=== PATIENT | male | born 1965 | race Caucasian/White ===

== ENCOUNTER 2016-09-14 20:38 | Emergency (ER) | payer OTHER ==
[~2016-09-14] VITALS: Ht 175.3 cm; Wt 74.8 kg
[~2016-09-14 20:38] MED LIST: CYMBALTA60 MG PO; QUINAPRIL HCL40 MG PO
--- NOTE | 2016-09-14 20:50 | ED GENERAL ADULT ---
History of Present Illness General Chief Complaint: Altered Mental Status Stated Complaint: BIBA AMS Source: patient Exam Limitations: unable to give history, confusion Allergies Coded Allergies: NO KNOWN ALLERGIES (10/17/15) Reconcile Medications DULOXETINE HCL (Cymbalta) 60 MG ECC 1 CAP PO DAILY DEPRESSION (Reported) QUINAPRIL HCL (Quinapril HCl) 40 MG TAB 1 TAB PO BID HTN Triage Note: PT BIBA FROM HOME S/P FAMILY CALLING EMS DUE TO AMS. PER FAMILY PT FELL 2 TIMES TODAY BACK ON TO HIS BED. PT ARRIVES ALERT, ORIENTED TO PERSON AND PLACE ONLY. PT DENIES ANY COMPLAINTS. Triage Nurses Notes Reviewed? yes HPI: Patient is a 51-year-old male who was BIBA after family EMS due to two episodes patient falling back on to his bed today. Patient is alert and awake, oriented to place, person but not time. When asked what happened he says 'I just don't know'. Patient answers questions with yes and know, speech is non-fluent and is only answering with 2-3 words. He does not appear in distress, denies headache, visual changes, chest pain, SOB. denies alcohol or substance use. Family members are not at bedside, home phone was called and nobody answered, mother's phone number was invalid. (DREAD LAWTON,[facility]) Vital Signs & Intake/Output Vital Signs & Intake/Output Vital Signs Date Time Temp Pulse Resp B/P Pulse O2 O2 Flow FiO2 Ox Delivery Rate 09/14 2318 98.2 91 16 107/65 95 Room Air 09/14 2049 94 09/14 2048 97.0 90 18 153/90 93 Room Air ED Intake and Output 09/15 0000 09/14 1200 Intake Total Output Total 500 Balance -500 Output, Urine 500 Patient 74.843 kg Weight Onset: Gradual Duration: hour(s): Timing: recent history Injury Environment: home Severity: moderate Modifying Factors: Improves With: rest. (ALFREDO LAWTON,VEGA Martell) Past History Travel History Traveled to [place] past 21 day No Medical History Any Pertinent Medical History? see below for history Neurological: NONE EENT: NONE Cardiovascular: hypertension, hyperlipidemia Respiratory: NONE Gastrointestinal: NONE Hepatic: NONE Renal: NONE Musculoskeletal: NONE Psychiatric: depression Endocrine: NONE Blood Disorders: NONE Cancer(s): NONE HOSPITAL INSURANCE CLERK/Reproductive: NONE Surgical History Surgical History: non-contributory Psychosocial History What is your primary language Irish Tobacco Use: Never used ETOH Use: 6 Illicit Drug Use: denies illicit drug use Family History Hx Contributory? No (ELISE CANADA MD) Review of Systems Review of Systems Constitutional: Denies: chills, fever, weakness. EENTM: Denies: visual changes, hearing changes. Respiratory: Denies: cough, short of breath. Cardiovascular: Denies: chest pain, palpitations. GI: Denies: abdominal pain, changes in stool. Genitourinary: Denies: discharge, frequency, nocturia. Musculoskeletal: Reports: back pain, gout. Denies: joint pain. Skin: Reports: no symptoms. Neurological/Psychological: Reports: no symptoms. Hematologic/Endocrine: Denies: bruising, bleeding, polyuria, polydipsia. (ELISE CANADA MD) Review of Systems Constitutional: Reports: no symptoms. EENTM: Reports: no symptoms. Respiratory: Reports: no symptoms. Cardiovascular: Reports: no symptoms. GI: Reports: no symptoms. Genitourinary: Reports: no symptoms. Musculoskeletal: Reports: no symptoms. Skin: Reports: no symptoms. Neurological/Psychological: Reports: no symptoms. Hematologic/Endocrine: Reports: no symptoms. Immunologic/Allergic: Reports: no symptoms. All Other Systems: Reviewed and Negative (ALFREDO LAWTON,VEGA Martell) Physical Exam Physical Exam General Appearance: well developed/nourished, no apparent distress, awake, not oriented to time, but oriented to place and person Head: atraumatic, normal appearance, active bleeding Eyes: Bilateral: normal appearance, PERRL, abnormal EOM. Ears, Nose, Throat: normal pharynx, normal ENT inspection, hearing grossly normal Neck: normal inspection, supple, full range of motion Respiratory: normal breath sounds, chest non-tender, no respiratory distress Cardiovascular: regular rate/rhythm Peripheral Pulses: 2+ radial (R), 2+ radial (L), 2+ dorsalis pedis (R), 2+ dorsalis pedis (L) Gastrointestinal: normal bowel sounds, soft, non-tender Back: petechial skin rash on the upper trunk Extremities: normal inspection, normal capillary refill, normal range of motion, no edema Neurologic/Psych: no motor/sensory deficits, awake, disoriented to time, speech non-fluent, responds mostly with yes or no Skin: intact, normal color, warm/dry Lymphatic: no anterior cervical shima Core Measures ACS in differential dx? Yes CVA/TIA Diagnosis: Yes Severe Sepsis Present: No Septic Shock Present: No (ELISE CANADA MD) Progress Differential Diagnoses I considered the following diagnoses in my evaluation of the patient: [alcohol intoxication, substance abuse, rule out ACS, rule out CVA] Initial ED EKG: NSR Comments: SERVICE DATE: 09/14/16 EXAM TYPE: CAT - CT CERV SPINE WO IV CONTRAST; CT HEAD WO IV CONTRAST EXAMINATION: CT HEAD AND CERVICAL SPINE WITHOUT CONTRAST CLINICAL INFORMATION: Fall, loss of consciousness and head injury. COMPARISON: None. TECHNIQUE: Contiguous axial imaging was performed from the thoracic inlet to the vertex without intravenous administration of contrast. 2-D coronal and sagittal reformatted images of the cervical spine were obtained at the acquisition workstation. DLP: 962 mGy-cm. FINDINGS: Head: No acute intracranial abnormality. No acute intracranial hemorrhage, mass or mass effect or abnormal extra-axial fluid collections. The density within the dural venous sinuses is within normal limits. The ventricles are normal in size, without hydrocephalus. There are no focal areas of hypoattenuation within a vascular distribution to suggest acute transcortical ischemia. The basilar cisterns are patent. No acute calvarial abnormality is identified. Soft tissues appear unremarkable. The imaged paranasal sinuses and mastoid air cells are well aerated. Cervical spine: Noncontrast CT of the cervical spine demonstrates severe multilevel degenerative disc disease of the cervical spine. No evidence of acute cervical spine fracture or subluxation is identified. There is reversal of the normal lordotic curvature of the cervical spine from C3 to C5, likely secondary to underlying severe degenerative disc disease. Prevertebral soft tissues are within normal limits. The atlantoaxial and craniocervical junctions are intact. IMPRESSION: 1. No acute intracranial abnormality. 2. Severe multilevel degenerative disc disease of the cervical spine, without evidence of acute cervical spine fracture or subluxation. DICTATED BY: HARRY LOPEZ MD DATE/TIME DICTATED:09/14/162137 TENNIS CAMP INSTRUCTOR:YAMILET DATE/TIME TRANSCRIBED:09/14/162137 (ELISE CANADA MD) Differential Diagnoses I considered the following diagnoses in my evaluation of the patient: Plan of Care: Orders Procedure Date/time Status TROPONIN LEVEL 09/15 129 Complete EKG 09/15 129 Active Lab Add-on Test 09/14 2216 Active PROLACTIN 09/14 2134 Complete PHOSPHORUS 09/14 2134 Complete MAGNESIUM 09/14 2134 Complete URINE DRUG SCREEN FOR ER ONLY 09/14 2057 Complete TROPONIN LEVEL 09/14 2057 Complete ETHANOL 09/14 2057 Complete COMPREHENSIVE METABOLIC PANEL 09/14 2057 Complete CBC WITHOUT DIFFERENTIAL 09/14 2057 Complete EKG 09/14 2056 Active Laboratory Tests 09/15/16 0121: Troponin I < 0.01 09/14/162139: Urine Opiates Screen < 100.00, Methadone Screen 54, Barbiturate Screen < 60, Ur Phencyclidine Scrn < 6.00, Amphetamines Screen < 100, U Benzodiazepines Scrn < 85, Urine Cocaine Screen < 50, Urine Cannabis Screen < 5.00 09/14/162134: Anion Gap 18 H, Estimated GFR > 60, BUN/Creatinine Ratio 26.7 H, Glucose 107 H, Calcium 9.3, Phosphorus 3.4, Magnesium 1.9, Total Bilirubin 0.4, AST 38, ALT 47, Alkaline Phosphatase 108, Troponin I < 0.01, Total Protein 7.2, Albumin 4.3, Globulin 2.9, Albumin/Globulin Ratio 1.5, Prolactin 18.6 H, CBC w Diff NO MAN DIFF REQ, RBC 4.67 L, MCV 96.4 H, MCH 32.6 H, RDW 13.6, MPV 7.3 L, Gran % 60.4, Lymphocytes % 25.9, Monocytes % 5.1, Eosinophils % 8.1 H, Basophils % 0.5 , Absolute Granulocytes 5.9, Absolute Lymphocytes 2.5, Absolute Monocytes 0.5, Absolute Eosinophils 0.8, Absolute Basophils 0, PUBS MCHC 33.8, Serum Alcohol 352.0 09/14/162106: Prolactin Cancelled Repeat EKG: unchanged (ALFREDO LAWTON,VEGA Martell) Departure Departure Time of Disposition: 429 Condition: Stable Referrals: SIMEON LAWTON,ANGELIQUE Elaine (PCP/Family) Additional Instructions: Please come back to the ED if you get have chest pain, SOB, severe headache. Departure Forms: Customer Survey General Discharge Information (DREAD LAWTON,ELISE) Departure Disposition: HOME OR SELF CARE Clinical Impression Primary Impression: Syncope Secondary Impressions: Alcohol intoxication Comments 09/15/16, 4:12am.... pt resting comfortably, benign exam. scans/labs benign, notable for elevated etoh level. trop/ekg benign x 2. Resident Co-Sign Statement Statement: ED Attending supervision documentation- [X] I saw and evaluated the patient. I have also reviewed all the pertinent lab results and diagnostic results. I agree with the findings and the plan of care as documented in the Resident's documentation. pt with benign exam, elevated etoh level, benign ct scan. [] I have reviewed the ED Record and agree with the Resident's documentation. [] Additions or exceptions (if any) to the Resident's note and plan are summarized below: [] (VEGA FUENTES MD) Critical Care Note Critical Care Note Critical Care Time: non-applicable (ELISE CANADA MD) [] I have reviewed the ED Record and agree with the Resident's documentation. [] Additions or exceptions (if any) to the Resident's note and plan are summarized below: [] (VEGA FUENTES MD) Critical Care Note Critical Care Note Critical Care Time: non-applicable (ELISE CANADA MD)
--- NOTE | 2016-09-14 21:46 | CT SCAN REPORT ---
EXAMINATION: CT HEAD AND CERVICAL SPINE WITHOUT CONTRAST CLINICAL INFORMATION: Fall, loss of consciousness and head injury. COMPARISON: None. TECHNIQUE: Contiguous axial imaging was performed from the thoracic inlet to the vertex without intravenous administration of contrast. 2-D coronal and sagittal reformatted images of the cervical spine were obtained at the acquisition workstation. DLP: 962 mGy-cm. FINDINGS: Head: No acute intracranial abnormality. No acute intracranial hemorrhage, mass or mass effect or abnormal extra-axial fluid collections. The density within the dural venous sinuses is within normal limits. The ventricles are normal in size, without hydrocephalus. There are no focal areas of hypoattenuation within a vascular distribution to suggest acute transcortical ischemia. The basilar cisterns are patent. No acute calvarial abnormality is identified. Soft tissues appear unremarkable. The imaged paranasal sinuses and mastoid air cells are well aerated. Cervical spine: Noncontrast CT of the cervical spine demonstrates severe multilevel degenerative disc disease of the cervical spine. No evidence of acute cervical spine fracture or subluxation is identified. There is reversal of the normal lordotic curvature of the cervical spine from C3 to C5, likely secondary to underlying severe degenerative disc disease. Prevertebral soft tissues are within normal limits. The atlantoaxial and craniocervical junctions are intact. IMPRESSION: 1. No acute intracranial abnormality. 2. Severe multilevel degenerative disc disease of the cervical spine, without evidence of acute cervical spine fracture or subluxation.
[2016-09-14 21:49] LABS: ABSOLUTE BASOPHIL COUNT 0 /CUMM (0.0-0.2); ABSOLUTE EOSINOPHIL COUNT 0.8 /CUMM (0.0-0.7); ABSOLUTE GRANULOCYTE CT 5.9 /CUMM (1.4-6.5); ABSOLUTE LYMPH COUNT 2.5 /CUMM (1.2-3.4); ABSOLUTE MONOCYTE COUNT 0.5 /CUMM (0.10-0.60); BASOPHIL % 0.5 % (0.0-2.0); EOSINOPHIL % 8.1 % (0-5); GRANULOCYTE % 60.4 % (42.2-75.2); MEAN CORPUSCULAR HGB 32.6 PG (27.0-31.0); MEAN CORPUSCULAR HGB CONC 33.8 G/DL (33.0-37.0); MEAN CORPUSCULAR VOLUME 96.4 FL (80.0-94.0); MEAN PLATELET VOLUME 7.3 FL (7.4-10.4); PLATELET COUNT 332 /CUMM (130-400); RBC DISTRIBUTION WIDTH 13.6 % (11.5-14.5); RED BLOOD CELL CT 4.67 /CUMM (4.70-6.10); WHITE BLOOD CELL COUNT 9.8 /CUMM (4.8-10.8)
[2016-09-15 06:43] VITALS: BP 134/71
== END 2016-09-15 04:52 ==
LOC: ERH 20:38
PROVIDERS: Pediatrics
DX: R55 Syncope and collapse (principal); F10.129 Alcohol abuse with intoxication, unspecified
CPT/HCPCS: 80307; 93005; 93010; G0480